=== PATIENT | male | born 1995 | race Caucasian/White ===

== ENCOUNTER 2020-06-25 02:48 | Emergency (ER) | payer SELFPAY ==
--- NOTE | 2020-06-25 02:51 | XR_ITS ---
WS: [id number] Exam: XR chest 1V portable [id number] Date/Time of Exam: 06/25/2020 2:54 AM Reason For Exam: cp Findings: The lungs are clear and fully expanded. Costophrenic angles are sharp. No infiltrates. Bronchovascula r relief appears normal. Cardiac silhouette is unremarkable. Bony elements are intact. XR/XR chest 1V portable [id number] IMPRESSION: Unremarkable chest radiograph.
--- NOTE | 2020-06-25 02:51 | ECG_ITS ---
[facility] Test Date: 2020-06-25 Pat Name: Raymon Berkowitz Department: Room: Gender: Male Flight Teacher: : 1995 Requested By: Jose Ratliff Order Number: [id number] Cathy MD: Autumn Singleton M.D. Measurements Intervals [place] Rate: 71 P: 69 IN: 172 QRS: 79 QRSD: 113 T: 55 QT: 373 QTc: 407 Interpretive Statements SINUS RHYTHM WITH SINUS ARRHYTHMIA INCOMPLETE RIGHT BUNDLE BRANCH BLOCK [90+ ms QRS DURATION, TERMINAL R IN V1/V2, 40+ ms S IN I/aVL/V4/V5/V6] No previous ECG available for comparison Electronically Signed On 06-25-2020 20:05:37 VASCULAR MANAGER by Autumn Singleton M.D. [id number]
[2020-06-25 02:58] VITALS: BP 149/78; PULSE 93; RESP 18; TEMP 36.7; O2SAT 99; BMI 26.8
[2020-06-25 03:02] VITALS: BP 149/84; PULSE 75; RESP 17; O2SAT 98
--- NOTE | 2020-06-25 03:16 | W.ED.GENADLT ---
HPI - General Adult General: Chief complaint: General Medical Stated complaint: hurts to breathe Time Seen by Provider: 06/25/20 02:51 Source: patient Mode of arrival: ambulatory Limitations: no limitations History of Present Illness: HPI narrative: 24-year-old male states he was diagnosed with strep 2 days ago and has been taking steroids at home with amoxicillin. He states that tonight he started having a burning sensation in his abdomen and his chest. He states it has been severe at first but is improved. He states pain is now 5 out of 10. He denies any shortness of breath. He denies any cough. He does have a history of asthma. Denies any vomiting or diarrhea. Onset (ago): hour(s) Associated symptoms: Reports chest pain and dyspnea; Deny headache(s), nausea, rash or vomiting Review of Systems Const: Denies: fever(s), chills, body aches or change in appetite Eyes: Denies: blurry vision or eye discomfort ENMT: Denies: throat pain or dental pain Card: Reports: chest pain Resp: Reports: dyspnea GI: Denies: abdominal pain, nausea, vomiting or diarrhea : Denies: dysuria Musc: Denies: neck pain or back pain Skin/Breast: Denies: rash Neuro: Denies: headache(s) Psych: Denies: depression Bin/Lymph: Denies: easy bruising All/Imm: Denies: urticaria Physical Exam Const: COMMON NORMALS: no acute distress, patient oriented x3 and healthy appearing HENMT: COMMON NORMALS: normocephalic and atraumatic HEAD & SCALP: normocephalic and atraumatic Eye: COMMON NORMALS: Equal, round and reactive pupils present and EOMs intact bilaterally PUPIL: Yes Equal, round and reactive pupils present Neck/C-Spine: COMMON NORMALS: full ROM and supple Chest: COMMONS NORMALS: normal inspection of the chest and normal palpation of entire chest wall Resp: COMMON NORMALS: normal respiratory effort, No retractions, No use of accessory muscles and clear to auscultation bilaterally AUSCULTATION: clear to auscultation bilaterally Cardio: COMMON NORMALS: regular rate, regular rhythm and No murmurs present (Cardio) RATE: regular rate RHYTHM: regular rhythm GI: COMMON NORMALS: Normal to inspection, nondistended, normoactive bowel sounds present, Soft to palpation, non-tender and no masses PALPATION: Yes Soft to palpation Extremity: COMMON NORMALS: normal to inspection and full ROM Neuro: COMMON NORMALS: patient oriented x3, moves all extremities and no focal motor deficits Psych: COMMON NORMALS: mental status grossly normal, Normal thought process present and cooperative THOUGHT PROCESS: Normal thought process present Skin: COMMON NORMALS: no rashes or lesions noted and no wounds GENERAL SKIN EXAM: no rashes or lesions noted Course Vital Signs: Vital signs: Vital Signs Temperature 98.1 F 06/25/20 02:58 Pulse Rate 75 06/25/20 03:02 Respiratory Rate 17 06/25/20 03:02 Blood Pressure 149/84 06/25/20 03:02 Pulse Oximetry 98 06/25/20 03:02 MDM - General Adult MDM Narrative: Medical decision making narrative: Everardo presents here with chest pains atypical in nature. He likely has a gastritis from his antibiotics. He felt improved after GI cocktail. We will place him on Protonix. His x-ray and EKG here are normal. He has no signs of pulmonary embolism. He is stable for discharge and is to follow-up his primary doctor in 3 to 5 days return to ER if worsening. Imaging Data^: CXR: Attestation: I personally reviewed and interpreted this imaging study as follows: My impression: no acute abnormality EKG Data^: EKG 1: Attestation: I personally reviewed and interpreted this EKG as follows: EKG interpretation date: 06/25/20 EKG interpretation time: 03:11 Interpretation: nsr hr [address] or t wave abnormalities qrs 113 qtc 396 Discharge Plan Discharge Patient Disposition: Home Clinical Impression: Atypical chest pain Condition: Stable Prescriptions: New Protonix 40 mg tablet,delayed release (DR/EC) 40 mg PO DAILY 28 Days RF: 0 No Action prednisone 20 mg Tablet 20 mg PO BID RF: 0 albuterol 90 mcg/actuation Aerosol 90 mcg INHALATION RF: 0 amoxicillin-pot clavulanate 875-125 mg Tablet 1 tab PO TID RF: 0 Discharge Orders: Discharge ED (Routine); Ordered 06/25/20 Ordered By: Jose Ratliff Discharge Diet: Advance as tolerated Discharge Activity: Resume usual activity Patient Instructions: Chest Pain (ED) Coding Level of Care Code ED Work From Home for Chg Fwd Exam Comprehensive
[2020-06-25] MEDS: lidocaine 2% viscous 15 ML, aluminum-mag hydrox-simethicon 30 ML, sucralfate oral liq 1 GM PO (03:38)
[2020-06-25 03:59] VITALS: BP 122/70; PULSE 73; RESP 17; TEMP 36.7; O2SAT 97
[2020-06-25 20:18] LABS: Coronavirus Test Green County Not Detected
--- NOTE | 2020-06-26 08:18 | PC.NURSE ---
notified pt of negative covid results
== END 2020-06-25 03:59 | disposition home or self-care (01) ==
PROVIDERS: Emergency Provider Emergency Medicine
DX: R07.89 Other chest pain (principal)
CPT/HCPCS: 71045; 87635; 93005; 99283